=== PATIENT | male | born 1965 | race Two or more races ===

== ENCOUNTER → 2021-06-19 | Outpatient (REF) ==
--- NOTE | 2021-06-20 03:52 | REP ---
INDICATION: HIP BURSITIS BACK PAIN COMPARISON: None. TECHNIQUE: AP and frog-lateral views of the right hip FINDINGS: Generalized age-related changes include subtle increased sclerosis to the acetabulum with mild joint space narrowing and very early marginal spurring. No obvious periarticular calcifications or loose bodies identified. No evidence for acute or healed injury. Surrounding soft tissues are normal. IMPRESSION: Mild generalized age-related changes. <Electronically signed by Guanakito Lizarraga > 06/20/21 [id number]
--- NOTE | 2021-06-20 03:53 | REP ---
INDICATION: HIP BURSITIS BACK PAIN COMPARISON: None. TECHNIQUE: AP, lateral, coned-down views of the lumbar spine. FINDINGS: Three views of the lumbosacral spine demonstrate satisfactory alignment and lordosis without acute fracture / compression injury or subluxation. Facet hypertrophy and mild disc space narrowing at the L4-5 and L5-S1 levels cannot be excluded due to subtle rotation. IMPRESSION: 1. No acute fracture / compression injury or subluxation. 2. Cannot exclude mild degenerative changes of the lower lumbar spine. <Electronically signed by Guanakito Lizarraga > 06/20/21 0825
== END ==
LOC: M PLAIMG 12:08
PROVIDERS: ATTEND Internal Medicine
DX: M54.50 Low back pain, unspecified (principal)